=== PATIENT | male | born 1955 | race Caucasian/White ===

== ENCOUNTER 2017-08-10 13:52 | Emergency (ER) | payer BC ==
[~2017-08-10] VITALS: Ht 188 cm; Wt 117.9 kg
[2017-08-10] MEDS ORDERED: FLUOXETINE HCL40 MG PO (14:09)
[2017-08-10] MEDS ORDERED: PANTOPRAZOLE SO40 MG PO (14:09)
[2017-08-10] MEDS ORDERED: BISOPROLOL-HCT1 EAC2 PO (14:09)
[2017-08-10] MEDS ORDERED: METFORMIN HCL500 M1 PO (14:10)
[2017-08-10] MEDS ORDERED: ASPIRIN325 MG PO (14:11)
--- NOTE | 2017-08-11 13:35 | EKG ---
[facility] [address] [facility] [place] [address] Signed Normal sinus rhythm Normal ECG No previous ECGs available Confirmed by LEONID VILLANUEVA MD ([id number]) on 08/11/2017 1:35:51 PM Electronically Signed By: LEONID VILLANUEVA MD 08/11/17 1335 PATIENT NAME: NILESH STEWART Electrocardiogram DATE OF : 59 PHYSICIAN: LEONID VILLANUEVA MD REPORT #: [id number] REPORT IS CONFIDENTIAL AND NOT TO BE RELEASED WITHOUT AUTHORIZATION
== END 2017-08-10 15:55 | disposition home or self-care (01) ==
LOC: ED 13:52
DX: K21.9 Gastro-esophageal reflux disease without esophagitis (principal); Z79.82 Long term (current) use of aspirin; Z79.899 Other long term (current) drug therapy
CPT/HCPCS: 80053; 83690; 84484; 85025; 93005; 93010; 99284

== ENCOUNTER 2017-08-11 12:07 | Emergency (ER) | payer BC ==
[~2017-08-11] VITALS: Ht 188 cm; Wt 117.9 kg
[~2017-08-11 12:07] MED LIST: ASPIRIN325 MG PO; BISOPROLOL-HCT1 EAC2 PO; FLUOXETINE HCL40 MG PO; METFORMIN HCL500 M1 PO; PANTOPRAZOLE SO40 MG PO
--- NOTE | 2017-08-12 10:35 | EKG ---
[facility] [place] [facility] [address] [facility] [place], [place] [address] Signed Normal sinus rhythm Left axis deviation Abnormal ECG When compared with ECG of 10-AUG-2017 14:07, No significant change was found Confirmed by LEONID VILLANUEVA MD ([id number]) on 08/12/2017 10:35:25 AM Electronically Signed By: LEONID VILLANUEVA MD 08/12/17 1035 PATIENT NAME: NILESH STEWART Electrocardiogram DATE OF : 59 PHYSICIAN: LEONID VILLANUEVA MD REPORT #: [id number] REPORT IS CONFIDENTIAL AND NOT TO BE RELEASED WITHOUT AUTHORIZATION
== END 2017-08-11 15:28 | disposition short-term general hospital (02) ==
LOC: ED 12:07
DX: I20.0 Unstable angina (principal); I10 Essential (primary) hypertension; E11.9 Type 2 diabetes mellitus without complications; Z90.49 Acquired absence of other specified parts of digestive tract; Z79.899 Other long term (current) drug therapy; Z79.84 Long term (current) use of oral hypoglycemic drugs; Z79.82 Long term (current) use of aspirin
CPT/HCPCS: 80053; 84484; 85025; 93005; 93010; 96374; 99285; J2405

== ENCOUNTER 2021-08-07 12:06 | Day surgery (SDC) | payer OTHER ==
[~2021-08-07] VITALS: Ht 188 cm; Wt 118.0 kg
[~2021-08-07 12:06] MED LIST changes: +ATORVASTATIN CA80 MG PO; +LOSARTAN POTASS25 MG PO; +METOPROLOL SUC100 MG PO
--- NOTE | 2021-08-07 14:02 | NUR ---
08/07/21 1402 Melissa Centeno 1356-PATIENT ARRIVED TO PACU ON 4L NC PLACED ON 2L NC RR EVEN. PATIENT AWAKE DROWSY DENIES PAIN OR NAUSEA. ABDOMEN SOFT ENCOURAGED TO PASS GAS. IVF INFUSING. PATIENT LAYING LEFT LATERAL FALLS BACK ASLEEP
--- NOTE | 2021-08-08 13:16 | OR ---
[facility] [address] [place], [place] [address] Signed DATE OF OPERATION: 08/07/2021 SURGEON: Nilesh Esqueda MD PREOPERATIVE DIAGNOSES: 1. Longstanding chronic esophagitis. 2. History of serrated adenoma at 50 cm, excised in 2011. POSTOPERATIVE DIAGNOSES: 1. No evidence of esophagitis; relatively good flap valve. 2. Gastric polyps. 3. Mild antral gastritis. 4. Sessile polyp at 80 cm (excised). PROCEDURE: 1. Esophagogastroduodenoscopy with biopsy. 2. Total colonoscopy to the cecum with cold snare polypectomy x1. ANESTHESIA: Intravenous sedation, fentanyl 150 mcg, Versed 8 mg. INDICATION: This 65-year-old white man is a patient of Dr. Julien. He underwent colonoscopy by me in 2011, at which time, he was found to have a serrated adenoma excised at 50 cm. Upper endoscopy showed chronic esophagitis and acute on chronic jejunitis with focal ulceration without dysplasia. He continues to take Prilosec on a daily basis for reflux symptom control, which has been good. He has no blood per rectum, diarrhea, or constipation. He is admitted to undergo upper endoscopy as well as colonoscopy. He understands the risks of bleeding, infection, and perforation. FINDINGS: Upper endoscopy confirmed normal-appearing esophagus. There was mild antral gastritis and several gastric polyps, likely related to PPI use. The duodenum looked reasonably normal. Biopsies were obtained. Good villi were noted. On colonoscopy, the prep was good. Complete colonoscopy was undertaken of the cecum. He had a sessile polyp at approximately 80 cm from the anal verge, which was excised with cold snare technique. The remaining colon was essentially normal. DESCRIPTION OF PROCEDURE: Electronically Signed By: NILESH ESQUEDA MD 08/08/21 1316 PATIENT NAME: NILESH STEWART OPERATIVE REPORT DATE OF : 59 REPORT #: [id number] PHYSICIAN: NILESH ESQUEDA MD PCP: MINA JULIEN DO REPORT IS CONFIDENTIAL AND NOT TO BE RELEASED WITHOUT AUTHORIZATION [facility] [address] [place], [place] [address] Signed The patient was brought to the endoscopy suite and given topical lidocaine hypopharyngeal anesthesia and placed in the lateral decubitus position. He was given intravenous sedation to the point of slurred speech and nystagmus with full cardiopulmonary monitoring. A bite block was placed. An Olympus video upper endoscope was passed in the hypopharynx. The vocal cords appeared normal. The scope was advanced to the esophagus throughout its length, it was normal. There was no evidence of Fletcher's epithelium. The scope was passed to the stomach, which was insufflated with air with some bile in the stomach. Rugal folds were normal. There were some polyps in the more proximal stomach. The antrum showed mild chronic inflammation. The pylorus was normal. The scope was passed through into the duodenum, which appeared normal including normal villi. Biopsies were taken nevertheless. Scope was withdrawn and biopsies taken of the antrum for both SHARITA and pathologic testing. Retroflexed view showed a reasonably good flap valve. The scope was straightened and withdrawn, and biopsies were taken of the distal esophagus that appeared normal as well as the mid esophagus which was also essentially normal. There was no evidence of Fletcher's epithelium. The scope was withdrawn and vocal cords confirmed to be normal. Plans were then made for colonoscopy. Digital rectal examination showed a reasonably normal prostate. There is no dominant nodule. An Olympus video colonoscope was passed in the rectum and manipulated throughout the colon, ultimately intubating the cecum. Irrigation was undertaken and biopsy forceps used to raise the mucosa behind the ileocecal valve confirming no evidence of polyps or other abnormality. The scope was carefully withdrawn from that point. Examination throughout showed no sign of abnormality until approximately 80 cm from the anal verge, where a sessile polyp was noted. This was most likely adenomatous. This was excised with cold snare technique without problem, passed for Pathology. Further withdrawal of the scope showed no other abnormality. Retroflexed view was normal. The scope was removed and the patient was taken to the recovery room in good condition. CONCLUDING DIAGNOSES: 1. Mild antral gastritis with gastric polyps likely related to PPI use. No evidence of esophagitis. 2. Sessile polyp at 80 cm excised. PLAN: 1. Recommend repeat colonoscopy in 3-5 years depending on the histology of the excised polyp. 2. Continue use of PPI for symptom control as necessary for chronic gastritis. Await final results regarding CLOtest and pathology reports. The patient will return to the ongoing care of Dr. Julien. Electronically Signed By: NILESH ESQUEDA MD 08/08/21 1316 PATIENT NAME: NILESH STEWART OPERATIVE REPORT DATE OF : 59 REPORT #: [id number] PHYSICIAN: NILESH ESQUEDA MD PCP: MINA JULIEN DO REPORT IS CONFIDENTIAL AND NOT TO BE RELEASED WITHOUT AUTHORIZATION [facility] [address] [place] [id number] Signed Nilesh Esqueda MD JM/MODL /[id number] cc: Mina Julien DO Copies: MINA JULIEN DO ~ Electronically Signed By: NILESH ESQUEDA MD 08/08/21 1316 PATIENT NAME: NILESH STEWART OPERATIVE REPORT DATE OF : 59 REPORT #: [id number] PHYSICIAN: NILESH ESQUEDA MD PCP: MINA JULIEN DO REPORT IS CONFIDENTIAL AND NOT TO BE RELEASED WITHOUT AUTHORIZATION
--- NOTE | 2021-08-09 14:13 | PATH ---
[facility] [address] [facility] [place], [place] [address] Signed SPECIMEN(S): A DUODENAL BIOPSY SPECIMEN(S): B ANTRAL BIOPSY SPECIMEN(S): C GASTRIC POLYP SPECIMEN(S): D LOWER ESOPHAGEAL BIOPSY SPECIMEN(S): E MID ESOPHAGEAL BIOPSY SPECIMEN(S): F COLON POLYP AT 60 CM SPECIMEN SOURCE: A. DUODENAL BIOPSY B. ANTRAL BIOPSY C. GASTRIC POLYP D. LOWER ESOPHAGEAL BIOPSY E. MID ESOPHAGEAL BIOPSY F. COLON POLYP AT 60 CM CLINICAL HISTORY: GERD; history of chronic esophagitis; history of polyp of colon. Post: Antral gastritis, gastric polyp, colon polyp x1. MICROSCOPIC DESCRIPTION: Histologic sections of all submitted blocks are examined by light microscopy. These findings, together with the gross examination, support the pathologic diagnosis. FINAL PATHOLOGIC DIAGNOSIS: A. Duodenum, biopsy: - No significant histopathology. B. Stomach, antrum, biopsy: - No significant histopathologic alterations. C. Stomach, polypectomy: - Benign fundic gland polyp. D. Lower esophagus, biopsy: - Chronic esophagitis. - No evidence of Fletcher's esophagus. E. Mid esophagus, biopsy: - Chronic esophagitis. F. Colon, 60 cm, polypectomy: - Tubular adenoma. - There is no evidence of high grade dysplasia or malignancy. COMMENT: (A) The sections from the duodenal biopsy show portions of duodenal mucosa with PATIENT NAME: NILESH STEWART PATHOLOGY DATE OF : 59 REPORT #: [id number] PHYSICIAN: IESHA PATHOLOGY PCP: MINA JULIEN DO REPORT IS CONFIDENTIAL AND NOT TO BE RELEASED WITHOUT AUTHORIZATION [facility] [address] [place], [place] [address] Signed long fingerlike villi. There is no villous atrophy, crypt hyperplasia or intraepithelial lymphocytosis making a diagnosis of celiac disease unlikely. There is no evidence of peptic duodenitis, microorganisms, abnormal infiltrates or neoplasia. (B) The sections through the gastric biopsies show fragments of histologically unremarkable antral mucosa. There is no evidence of acute or chronic inflammation. There is no evidence of H. pylori, intestinal metaplasia, abnormal infiltrates or neoplasia. (C) These sections demonstrate features of a fundic gland polyp. There is no evidence of dysplasia, intestinal metaplasia or Helicobacter pylori. Fundic gland polyps can occur as an isolated phenomenon. They may also represent a manifestation of familial adenomatous polyposis syndrome, and are a common type of polyp seen in patients taking proton pump inhibitors. (D) The biopsy contains reactive appearing squamous mucosa. It appears acanthotic. The absence of glandular mucosa is confirmed. There is chronic inflammation associated with the reactive changes. The changes are nonspecific and can be seen in a variety of settings including infections, gastroesophageal reflux disease or other forms of esophagitis. (E) The biopsy contains reactive appearing squamous mucosa with mild ballooning degeneration. Prominent vascular lakes are present in the papillae. The absence of glandular mucosa is confirmed. The changes are nonspecific and can be seen in a variety of settings including infections, gastroesophageal reflux disease or other forms of esophagitis. SOHEILA:binhg:C2NR GROSS DESCRIPTION: Six specimens are received in six containers, labeled "OBINNA." A. The specimen, labeled "OBINNA, duodenum biopsy done," is received in formalin and consists of two fulton soft tissue fragment(s) that measure 0.2 cm in greatest dimension. The specimen is entirely submitted in cassette (A1). B. The specimen, labeled "OBINNA, antrum biopsy," is received in formalin and consists of two fulton soft tissue fragment(s) that measure 0.1-0.2 cm in greatest dimension. The specimen is entirely submitted in cassette (B1). C. The specimen, labeled "OBINNA, gastric polyp," is received in formalin and consists of one fulton soft tissue fragment that measures 0.3 cm in greatest dimension. The specimen is entirely submitted in cassette (C1). D. The specimen, labeled "OBINNA, lower esophagus biopsy," is received in formalin PATIENT NAME: NILESH STEWART PATHOLOGY DATE OF : 59 REPORT #: [id number] PHYSICIAN: IESHA SMITH PCP: MINA JULIEN DO REPORT IS CONFIDENTIAL AND NOT TO BE RELEASED WITHOUT AUTHORIZATION [facility] [address] [place], [place] [address] Signed and consists of one fulton soft tissue fragment that measures 0.3 cm in greatest dimension. The specimen is entirely submitted in cassette (D1). E. The specimen, labeled "OBINNA, middle esophagus biopsy," is received in formalin and consists of one fulton soft tissue fragment that measures 0.2 cm in greatest dimension. The specimen is entirely submitted in cassette (E1). F. The specimen, labeled "OBINNA, colon polyp at 60 cm," is received in formalin and consists of one fulton soft tissue fragment that measures 0.4 cm in greatest dimension. The specimen is entirely submitted in cassette (F1). JS (under the direct supervision of a pathologist) The Gross Description was prepared using a voice recognition system. The report was reviewed for accuracy; however, sound-alike word errors, addition and/or deletions may occur. If there is any question about this report, please contact Client Services. PERFORMING LABORATORY: The technical component was performed by [employer] [address] (Expansion Envelope Maker Hand: Renate Garcia MD; CLIA# [id number]). [facility] [address] [place] [address] (CLIA# [id number]). Diagnostician: Emil Perez MD Pathologist Electronically Signed 08/09/2021 Copies: ~ PATIENT NAME: NILESH STEWART PATHOLOGY DATE OF : 59 REPORT #: [id number] PHYSICIAN: IESHA SMITH PCP: MINA JULIEN DO REPORT IS CONFIDENTIAL AND NOT TO BE RELEASED WITHOUT AUTHORIZATION
== END 2021-08-07 14:40 | disposition home or self-care (01) ==
LOC: OPS 12:06 → DS 14:00 → OPS 14:00
PROVIDERS: ATTEND Surgery
PROC: 0DB68ZX Excision of Stomach, Via Natural or Artificial Opening Endoscopic, Diagnostic (ICD-10-PCS; principal; 2021-08-07 11:00)
PROC: 0DBH8ZX Excision of Cecum, Via Natural or Artificial Opening Endoscopic, Diagnostic (ICD-10-PCS; 2021-08-07 11:00)
DX: D12.0 Benign neoplasm of cecum (principal); K31.7 Polyp of stomach and duodenum; K29.70 Gastritis, unspecified, without bleeding; E78.5 Hyperlipidemia, unspecified; I10 Essential (primary) hypertension; K21.00 Gastro-esophageal reflux disease with esophagitis, without bleeding; E11.9 Type 2 diabetes mellitus without complications; Z86.010 Personal history of colon polyps; Z20.822 Contact with and (suspected) exposure to COVID-19; Z90.49 Acquired absence of other specified parts of digestive tract
CPT/HCPCS: 99153; G0500; J2250; J3010; J7121

== ENCOUNTER 2025-04-18 11:58 | Day surgery (SDC) | payer MEDICARE ==
[~2025-04-18] VITALS: Ht 188 cm; Wt 115.9 kg
[~2025-04-18 11:58] MED LIST changes: +IBLOOD GLUCOSE TEST STRIP 1 EA TEST VI PRN; +LACTATED RINGER'S 1,000 ML IV SCH; +LIDOCAINE HCL 1% 5 ML SDV INJ ONE; +MIDAZOLAM HCL 5 MG/5 ML VIAL IV PRN; +fentaNYL citrate 100 MCG/2 ML VIAL IV PRN
[2025-04-18 12:28] VITALS: BP 144/73
[2025-04-18] MEDS ORDERED: OMEPRAZOLE20 MG PO (12:43)
[2025-04-18] MEDS ORDERED: DULOXETINE HCL40 MG PO (12:44)
[2025-04-18] MEDS ORDERED: BAYER CHEWABLE81 MG PO (12:45)
[2025-04-18] MEDS ORDERED: FARXIGA5 MG PO (12:45)
[2025-04-18] MEDS ORDERED: fentaNYL citrate 100 MCG/2 ML VIAL ONE (12:51)
[2025-04-18] MEDS ORDERED: MIDAZOLAM HCL 5 MG/5 ML VIAL ONE (12:51)
--- NOTE | 2025-04-18 14:23 | NUR ---
04/18/25 1423 Lamar Floyd 8804 PT ARRIVED IN PACU SLEEPY WITH NO C/O'S. ABD SOFT. 1415 DR AT BEDSIDE. ALL QUESTIONS ANSWERED.
[2025-04-18 14:52] VITALS: BP 130/83
--- NOTE | 2025-04-21 11:32 | OR ---
[facility] [address] [place], [place] [address] Signed DATE OF OPERATION: 04/18/2025 SURGEON: Nilesh Esqueda MD PREOPERATIVE DIAGNOSIS: History of colonic polyps including serrated adenoma 2011 and additional polyp 2020. POSTOPERATIVE DIAGNOSIS: Sigmoid diverticulosis, no evidence of polyps. PROCEDURE: Total colonoscopy to cecum. ANESTHESIA: Intravenous sedation, fentanyl 100 mcg, and Versed 9 mg. INDICATION: This 69-year-old white man is patient of Dr. Jose Antonio Julien. He has undergone colonoscopy by me in 2011, at which time he was found to have a serrated adenoma. Followup colonoscopy in 2020 showed a polyp, which was excised. He is currently asymptomatic. He has no family history of colon cancer and no current symptoms of bleeding, diarrhea, or constipation. He is admitted at this time to undergo surveillance colonoscopy. He understands the risk of bleeding, infection, and perforation. FINDINGS: The prep was excellent. Complete colonoscopy was undertaken of the cecum. He had a few diverticula of the sigmoid, but no evidence of polyps. He did have some internal hemorrhoidal changes. DESCRIPTION OF PROCEDURE: The patient was brought to the endoscopy suite and placed in lateral decubitus position, given intravenous sedation to the point of slurred speech and nystagmus. Digital rectal examination was normal. An Olympus video colonoscope was passed in the rectum and manipulated throughout the colon noting diverticula of the sigmoid. Scope was ultimately advanced to the cecum. Full intubation of the cecum was not forthcoming, but with biopsy forceps, the mucosa behind the ileocecal valve could be elevated, showing no sign of abnormality. The scope was then withdrawn and examination throughout showed no sign of abnormality until the sigmoid where a few diverticula were noted once again. Retroflexed view of the rectum Electronically Signed By: NILESH ESQUEDA MD 04/21/25 1132 PATIENT NAME: NILESH STEWART OPERATIVE REPORT DATE OF : 59 REPORT #: [id number] PHYSICIAN: NILESH ESQUEDA MD PCP: JOSE ANTONIO JULIEN DO REPORT IS CONFIDENTIAL AND NOT TO BE RELEASED WITHOUT AUTHORIZATION [facility] [address] [place], [place] [address] Signed showed internal hemorrhoids. The patient was taken to recovery room at conclusion of procedure, having suffered no complication. CONCLUDING DIAGNOSES: 1. Diverticula of sigmoid. No evidence of polyps. 2. Internal hemorrhoids. PLAN: Would recommend repeat colonoscopy in 10 years based on current guidelines, sooner if symptoms should develop. Recommend high-fiber diet or fiber supplement if preferred. He will return to the ongoing care of Dr. Julien. MD RACHEL Hill/MARITZAL /[id number] cc: Jose Antonio Julien DO Copies: JOSE ANTONIO JULIEN DO ~ Electronically Signed By: NILESH ESQUEDA MD 04/21/25 1132 PATIENT NAME: TERRYNILESH BRITNI OPERATIVE REPORT DATE OF : 59 REPORT #: [id number] PHYSICIAN: NILESH ESQUEDA MD PCP: JOSE ANTONIO JULIEN DO REPORT IS CONFIDENTIAL AND NOT TO BE RELEASED WITHOUT AUTHORIZATION
== END 2025-04-18 15:00 | disposition home or self-care (01) ==
LOC: DS 11:58
PROVIDERS: ATTEND Surgery
PROC: 0DJD8ZZ Inspection of Lower Intestinal Tract, Via Natural or Artificial Opening Endoscopic (ICD-10-PCS; principal; 2025-04-18 13:00)
DX: Z12.11 Encounter for screening for malignant neoplasm of colon (principal); K57.30 Diverticulosis of large intestine without perforation or abscess without bleeding; K64.8 Other hemorrhoids; Z86.0101 Personal history of adenomatous and serrated colon polyps
CPT/HCPCS: 99153; G0500; J2250; J3010; J7121